=== PATIENT | male | born 1955 | race African-American/Black ===

== ENCOUNTER 2021-06-03 18:29 | Observation (INO) ==
[2021-06-03] MEDS ORDERED: ASPIRIN 81 MG CHEWTAB PO ONE (19:24)
[2021-06-03] MEDS ORDERED: ASPIRIN 81 MG CHEWTAB ONE (19:25)
[2021-06-03] MEDS ORDERED: APRESOLINE INJ 20 MG VIAL IVP ONE (19:31)
[2021-06-03] MEDS ORDERED: APRESOLINE INJ 20 MG VIAL ONE (19:33)
--- NOTE | 2021-06-03 19:45 | RAD ---
CHEST, 1 VIEWHISTORY: CHEST PAINStudy: AP view of the chest.Comparison:NoneFindings:The cardiomediastinal silhouette is normal. No focal consolidations, pleural effusions or pneumothorax. Osseous structures demonstrate no acute abnormality. Bilateral hyperexpansion and interstitial prominence.IMPRESSION:1. No acute cardiopulmonary process.2. Findings of COPD.Electronically signed by: BRODIE HURST (Jun 03, 2021 19:44:26)
[2021-06-03 19:48] LABS: EOSINOPHILS # (AUTO) 0.1 x10^3/uL (0.0-0.2); MEAN PLATELET VOLUME 9.7 fL (7.4-11.0); MONOCYTES # (AUTO) 0.4 x10^3/uL (0.3-0.8)
[2021-06-03 19:53] LABS: EOSINOPHILS % (AUTO) 1.8 % (0.9-2.9); HEMOGLOBIN 13.2 g/dL (13.5-18.0); LYMPHOCYTES # (AUTO) 1.8 X10^3/uL (1.3-2.9); LYMPHOCYTES % (AUTO) 55.2 % (21.0-51.0); MEAN CORPUSCULAR HGB CONC 33.7 g/dL (33.0-35.0); MEAN CORPUSCULAR VOLUME 91.8 fL (80.0-100.0); MONOCYTES % (AUTO) 13.3 % (0.0-13.0); NEUTROPHILS # (AUTO) 0.9 x10^3/uL (2.2-4.8); NEUTROPHILS % (AUTO) 28.7 % (42.0-75.0); PLATELET COUNT 133 X10^3/uL (150.0-450.0); RED BLOOD COUNT 4.24 X10^6/uL (4.7-6.0); WHITE BLOOD COUNT 3.2 X10^3/uL (3.6-10.0)
[2021-06-03 20:07] LABS: ALANINE AMINOTRANSFERASE 60 Units/L (12-78); ALBUMIN 3.9 g/dL (3.4-5.0); ALKALINE PHOSPHATASE 81 Units/L (46-116); ASPARTATE AMINO TRANSFERASE 52 Units/L (15-37); BLOOD UREA NITROGEN 11 mg/dL (7-18); CHLORIDE 100 mmol/L (98-107); CKMB % 2.1 % (<4); CREATINE KINASE 390 Units/L (39-308); CREATININE 0.95 mg/dL (0.70-1.30); SODIUM 137 mmol/L (136-145); TOTAL PROTEIN 8.2 g/dL (6.4-8.2); eGFR NON BLACK RACES > 60 (>60)
[2021-06-03 20:35] LABS: CREATINE KINASE MB 8.2 ng/mL (0-4.0)
--- NOTE | 2021-06-03 22:53 | DR.CP ---
HPI Time Seen Time Seen by Provider: 06/03/21 19:05 PCP Primary Care Physician: Guille Complaint Chief Complaint Doctor Comments: LEFT CHEST PAIN OFF AND ON 2 HOURS PRIOR TO ARRIVAL, SPOUSE STATEDTHAT HE HASNOT BEEN COMPLIANT ON TAKING HIS BLOOD PRESSURE MEDICATIONS. Chief Complaint:: Pt c/o intermittent sharp chest pain x 2 hours. He denies n/v, dizziness or shortness of breath. Pt denies pain at present. Self Treatment fo Chief Complaint: Aspirin 81 mg COVID-19 Coronavirus risk:travel/contact w/high risk person: No Has patient experienced Coronavirus symptoms: No Source History Provided: Patient Mode of Arrival Mode of Arrival: Ambulatory Timing Onset of Chief Complaint: 06/03/21 PMH PMH Past Medical History: Yes Past Medical History: COPD and Hypertension Past Surgical History: No Family History History of Family Medical Conditions: Yes Family Medical History: Heart Failure Social History Does patient currently use any type of tobacco product: No Have you used tobacco products in the last 12 months: No Type of Tobacco Use: None Does any household member use tobacco: No Alcohol Use: None Do you use any recreational Drugs:: No Lives With: Family Lives Where: Home Travel Risk Coronavirus risk:travel/contact w/high risk person: No Has patient experienced Coronavirus symptoms: No Infectious screening In the last 2 months have you had wt loss of >10#?: NO Have you had fever, night sweats or hemotysis?: No Have you traveled outside the country in the last 6 months?: No Isolation: Standard ROS Review of Systems Constitutional: No Symptoms Reported Eyes: No Symptoms Reported ENTM: No Symptoms Reported Respiratoy: No Symptoms Reported Cardiovascular: Chest Pain Gastrointestinal/Abdominal: No Symptoms Reported Genitourinary: No Symptoms Reported Neurological: No Symptoms Reported Musculoskeletal: No Symptoms Reported Integumentary: No Symptoms Reported Hematologic/Lymphatic: No Symptoms Reported Endocrine: No Symptoms Reported Psychiatric: No Symptoms Reported All Other Systems: Reviewed and Negative PE Vitals Vitals: Temperature 97.7 F Pulse Rate 84 Respiratory Rate 18 Blood Pressure 140/97 O2 Sat by Pulse Oximetry 97 General General Appearance: Alert, In No Apparent Distress and In Distress (MODERATE DISTRESS) Head Head Exam: Normal Inspection Eyes Eye exam: Normal Appearance ENT ENT Exam: Normal Exam Chest Chest Inspection: Normal Inspection Respiratory Respiratory Exam: Normal Lung Sounds Bilat Cardiovascular Cardiovascular Exam: Regular Rate and Normal Rhythm Pulse: Normal Edema: Normal Abdominal Exam Abdominal Exam: Normal Inspection, Normal Bowel Sounds and Soft Extremities Extremities Exam: Normal Inspection Back Back Exam: Normal Inspection Neurologic Neurological Exam: Alert and Oriented X3 Psychiatric Psychiatric Exam: Normal Affect and Normal Mood Skin Skin Exam: Warm, Dry, Intact and Normal Color MDM Additional Information Findings: LEFT CHEST PAIN THAT HURTS MORE UPON PALPATION Differential Diagnosis Differential Diagnosis: Angina and Chest Wall Pain COURSE Treatment Treatment: PATIENT WAS GIVEN 2 MORE 81MG ASPIRINS AND HYDRALAZINE 10MG IV TO DE CREASE BLOOD PRESSURE AND HIS LEFT CHEST PAIN RESOLVED AFTER THIS TREATMENT IN ABOUT 40 MINUTES. HIS CARDIAC ENZYMES WERE NORMAL AND EKG WAS NORMAL. ROR Labs Reviewed Laboratory Results Reviewed?: Yes Result Diagrams: 06/04/21 05:00 06/04/21 05:00 Laboratory: WBC 3.2 X10^3/uL (3.6-10.0) L 06/03/21 19:17 RBC 4.24 X10^6/uL (4.7-6.0) L 06/03/21 19:17 Hgb 13.2 g/dL (13.5-18.0) L 06/03/21 19:17 Hct 39.0 % (42.0-54.0) L 06/03/21 19:17 MCV 91.8 fL (80.0-100.0) 06/03/21 19:17 MCH 31.0 pg (27.0-34.0) 06/03/21 19:17 MCHC 33.7 g/dL (33.0-35.0) 06/03/21 19:17 RDW 13.0 % (11.6-16.5) 06/03/21 19:17 Plt Count 133 X10^3/uL (150.0-450.0) L 06/03/21 19:17 MPV 9.7 fL (7.4-11.0) 06/03/21 19:17 Neut % (Auto) 28.7 % (42.0-75.0) L 06/03/21 19:17 Lymph % (Auto) 55.2 % (21.0-51.0) H 06/03/21 19:17 [place] % (Auto) 13.3 % (0.0-13.0) H 06/03/21 19:17 Eos % (Auto) 1.8 % (0.9-2.9) 06/03/21 19:17 Baso % (Auto) 1.0 % (0.2-1.0) 06/03/21 19:17 Neut # (Auto) 0.9 x10^3/uL (2.2-4.8) L 06/03/21 19:17 Lymph # (Auto) 1.8 X10^3/uL (1.3-2.9) 06/03/21 19:17 [place] # (Auto) 0.4 x10^3/uL (0.3-0.8) 06/03/21 19:17 Eos # (Auto) 0.1 x10^3/uL (0.0-0.2) 06/03/21 19:17 Baso # (Auto) 0.0 X10^3/uL (0.0-0.1) 06/03/21 19:17 Absolute Nucleated RBC 0.2 /100WBC 06/03/21 19:17 PT 13.1 SECONDS (11.8-14.3) 06/03/21 19:17 INR Target Range - 06/03/21 19:17 INR 1.04 (0.8-1.3) 06/03/21 19:17 APTT 32.2 SECONDS (22.9-36.5) 06/03/21 19:17 PTT Comment - 06/03/21 19:17 D-Dimer 0.27 ug/ml (0.0-0.57) 06/03/21 19:17 Sodium 137 mmol/L (136-145) 06/03/21 19:17 Corrected Sodium TNP 06/03/21 19:17 Potassium 4.0 mmol/L (3.5-5.1) 06/03/21 19:17 Chloride 100 mmol/L (98-107) 06/03/21 19:17 Carbon Dioxide 32.0 mmol/L (21-32) 06/03/21 19:17 BUN 11 mg/dL (7-18) 06/03/21 19:17 Creatinine 0.95 mg/dL (0.70-1.30) 06/03/21 19:17 Est GFR (MDRD) Af Amer > 60 (>60) 06/03/21 19:17 Est GFR (MDRD) Non-Af > 60 (>60) 06/03/21 19:17 Glucose 81 mg/dL (65-99) 06/03/21 19:17 Calcium 9.0 mg/dL (8.5-10.1) 06/03/21 19:17 Corrected Calcium TNP 06/03/21 19:17 Total Bilirubin 1.10 mg/dL (0.2-1.0) H 06/03/21 19:17 AST 52 Units/L (15-37) H 06/03/21 19:17 ALT 60 Units/L (12-78) 06/03/21 19:17 Alkaline Phosphatase 81 Units/L (46-116) 06/03/21 19:17 Creatine Kinase 342 Units/L (39-308) H 06/03/21 23:00 CK-MB (CK-2) 7.1 ng/mL (0-4.0) H* 06/03/21 23:00 CK/CKMB % Calc 2.1 % (<4) 06/03/21 23:00 Troponin I High Sens 22.6 ng/L (4.0-60.0) 06/03/21 23:00 Total Protein 8.2 g/dL (6.4-8.2) 06/03/21 19:17 Albumin 3.9 g/dL (3.4-5.0) 06/03/21 19:17 Globulin 4.3 g/dL (2.5-4.5) 06/03/21 19:17 Albumin/Globulin Ratio 0.9 Ratio (1.1-2.1) L 06/03/21 19:17 SARS CoV-2 RNA Rapid SIMON Negative (NEGATIVE) 06/04/21 01:40 Other Results Comments: THE PATIENT'S CARDIAC ENZYMES WERE NORMAL AND I GOT A SECOND S ET OF CARDIAC ENZYMES THAT WERE STILL IN NORMAL RANGE BUT SLIGHTLY INCREASED. XRAY XRAY Interpreted by: Radiologist X-ray Results: CHEST XRAY SHOWED SOME COPD BUT PATIENT STATED THAT HE STOPPED SMOKING MANY YEARS AGO. Opioid Opioid Risk Tool Age (Nelson box if 16-45): No History of Preadolescent Sexual Abuse: No Total: 0 Total Score Risk Category: Low Risk Copyright: Adolfo MARROQUIN predicting aberrant behaviors Diagnosis Discharge Problem: Chest pain Instructions Forms: Precautions for COVID19 [facility] Patient Portal Social Distancing ADDITIONAL NOTES Additional Notes Additional Notes: SPOKE TO DR GUERRA AT 0120 AM AND HE AGREED TO ACCEPT THE PATIENT TO OBSERVATION FOR CHEST PAIN.tHEPATIENT WAS TOLD OF THE INTENT AND WAS AGGREABLE.
[2021-06-03 23:59] LABS: CKMB % 2.1 % (<4)
[2021-06-04] LABS: CREATINE KINASE MB 7.1 ng/mL (0-4.0)
[2021-06-04] MEDS ORDERED: APRESOLINE TAB 25 MG PO STA (02:30)
[2021-06-04] MEDS ORDERED: NITROSTAT SL PRN (02:34)
[2021-06-04] MEDS ORDERED: PROVENTIL NEB TX 0.083% 2.5MG/ 3ML NEB PRN (03:13)
[2021-06-04 03:42] VITALS: BMI 22.0
[2021-06-04 05:25] LABS: BASOPHILS % (AUTO) 0.8 % (0.2-1.0); EOSINOPHILS % (AUTO) 0.4 % (0.9-2.9); HEMATOCRIT 41.8 % (42.0-54.0); HEMOGLOBIN 14.2 g/dL (13.5-18.0); LYMPHOCYTES # (AUTO) 0.7 X10^3/uL (1.3-2.9); LYMPHOCYTES % (AUTO) 21.5 % (21.0-51.0); MEAN CORPUSCULAR HEMOGLOBIN 30.8 pg (27.0-34.0); MEAN CORPUSCULAR HGB CONC 33.9 g/dL (33.0-35.0); MEAN CORPUSCULAR VOLUME 90.9 fL (80.0-100.0); MEAN PLATELET VOLUME 9.8 fL (7.4-11.0); MONOCYTES # (AUTO) 0.2 x10^3/uL (0.3-0.8); MONOCYTES % (AUTO) 6.9 % (0.0-13.0); NEUTROPHILS # (AUTO) 2.3 x10^3/uL (2.2-4.8); NEUTROPHILS % (AUTO) 70.4 % (42.0-75.0); PLATELET COUNT 138 X10^3/uL (150.0-450.0); WHITE BLOOD COUNT 3.3 X10^3/uL (3.6-10.0)
[2021-06-04 05:51] LABS: ALANINE AMINOTRANSFERASE 53 Units/L (12-78); ALBUMIN 3.9 g/dL (3.4-5.0); ALKALINE PHOSPHATASE 70 Units/L (46-116); ASPARTATE AMINO TRANSFERASE 45 Units/L (15-37); BLOOD UREA NITROGEN 10 mg/dL (7-18); CALCIUM 9.3 mg/dL (8.5-10.1); CARBON DIOXIDE 26.9 mmol/L (21-32); CHLORIDE 101 mmol/L (98-107); CREATININE 0.88 mg/dL (0.70-1.30); SODIUM 135 mmol/L (136-145); TOTAL PROTEIN 8.2 g/dL (6.4-8.2); eGFR NON BLACK RACES > 60 (>60)
[2021-06-04 05:53] LABS: CHOL/HDL RATIO 2.1 (0.0-5.0)
[2021-06-04 06:06] LABS: CKMB % 1.9 % (<4)
[2021-06-04 06:09] LABS: CREATINE KINASE MB 5.8 ng/mL (0-4.0)
[2021-06-04] MEDS ORDERED: COZAAR PO SCH (09:00)
[2021-06-04] MEDS ORDERED: APRESOLINE TAB 25 MG PO SCH (09:00)
[2021-06-04] MEDS ORDERED: NORVASC TAB 10 MG PO SCH (09:00)
[2021-06-04] MEDS ORDERED: ASPIRIN PO SCH ×2 (09:00)
--- NOTE | 2021-06-04 10:19 | DR.H&P ---
H&P History & Physical for Day of: H&P Date: 06/04/21 Chief Complaint Chief Complaint: Chest pain Allergies Allergies Allergy/AdvReac Type Severity Reaction Status Date / Time No Known Drug Allergies Allergy Verified 06/03/21 18:35 History of Present Illness History of Present Illness: Pt is a 66 year old male past medical history of hypertension and copd presenting with chest pain initially for the past 2 hours. In the ED it was noted that patient had significant hypertension and did not take his medications that day. Labs/imaging: Wbc 3.3, Hgb 14.2, Plt 138, Na 135, K 4.0, Creatinine 0.88, Glucose 94, D-dimer 0.27, EKG NSR, CXR: no acute cardiopulmonary findings, Troponin negative x3. Pt was admitted for observation, cardiac enzymes trended that was negative, and home blood pressure medications restarted. Pt responded well to treatment and chest pain resolved. Pt is instructed to take his blood pressure medication at home. He was discharged in stable condition. Instructed to follow up with pcp in 3-5 days. Past Medical History Past Medical History: COPD and Hypertension Family History Family Medical History: Heart Failure and Hypertension Social History Does patient currently use any type of tobacco product: No Have you used tobacco products in the last 12 months: No Type of Tobacco Use: None Does any household member use tobacco: No Alcohol Use: None Drug Use: None Medications Home Medications: No Known Drug Allergies Allergy (Verified 06/03/21 18:35) CONTINUE taking the following medications albuterol sulfate 1 inh INHALATION Q4H PRN 06/04/21 [History] amlodipine 10 mg PO DAILY 06/04/21 [History] hydrocodone-acetaminophen 1 tab PO Q6H PRN 06/04/21 [History] losartan 100 mg PO DAILY 06/04/21 [History] montelukast 10 mg PO DAILY 06/04/21 [History] tamsulosin 0.4 mg PO DAILY 06/04/21 [History] umeclidinium-vilanterol [Anoro Ellipta] 1 inh INHALATION DAILY 06/04/21 [History] Labs Result Diagrams: 06/04/21 05:00 06/04/21 05:00 Labs: Laboratory WBC 3.3 X10^3/uL (3.6-10.0) L 06/04/21 05:00 RBC 4.60 X10^6/uL (4.7-6.0) L 06/04/21 05:00 Hgb 14.2 g/dL (13.5-18.0) 06/04/21 05:00 Hct 41.8 % (42.0-54.0) L 06/04/21 05:00 MCV 90.9 fL (80.0-100.0) 06/04/21 05:00 MCH 30.8 pg (27.0-34.0) 06/04/21 05:00 MCHC 33.9 g/dL (33.0-35.0) 06/04/21 05:00 RDW 13.0 % (11.6-16.5) 06/04/21 05:00 Plt Count 138 X10^3/uL (150.0-450.0) L 06/04/21 05:00 MPV 9.8 fL (7.4-11.0) 06/04/21 05:00 Neut % (Auto) 70.4 % (42.0-75.0) 06/04/21 05:00 Lymph % (Auto) 21.5 % (21.0-51.0) 06/04/21 05:00 [place] % (Auto) 6.9 % (0.0-13.0) 06/04/21 05:00 Eos % (Auto) 0.4 % (0.9-2.9) L 06/04/21 05:00 Baso % (Auto) 0.8 % (0.2-1.0) 06/04/21 05:00 Neut # (Auto) 2.3 x10^3/uL (2.2-4.8) 06/04/21 05:00 Lymph # (Auto) 0.7 X10^3/uL (1.3-2.9) L 06/04/21 05:00 [place] # (Auto) 0.2 x10^3/uL (0.3-0.8) L 06/04/21 05:00 Eos # (Auto) 0.0 x10^3/uL (0.0-0.2) 06/04/21 05:00 Baso # (Auto) 0.0 X10^3/uL (0.0-0.1) 06/04/21 05:00 Absolute Nucleated RBC 0.1 /100WBC 06/04/21 05:00 PT 13.1 SECONDS (11.8-14.3) 06/03/21 19:17 INR Target Range - 06/03/21 19:17 INR 1.04 (0.8-1.3) 06/03/21 19:17 APTT 32.2 SECONDS (22.9-36.5) 06/03/21 19:17 PTT Comment - 06/03/21 19:17 D-Dimer 0.27 ug/ml (0.0-0.57) 06/03/21 19:17 Sodium 135 mmol/L (136-145) L 06/04/21 05:00 Corrected Sodium TNP 06/04/21 05:00 Potassium 4.0 mmol/L (3.5-5.1) 06/04/21 05:00 Chloride 101 mmol/L (98-107) 06/04/21 05:00 Carbon Dioxide 26.9 mmol/L (21-32) 06/04/21 05:00 BUN 10 mg/dL (7-18) 06/04/21 05:00 Creatinine 0.88 mg/dL (0.70-1.30) 06/04/21 05:00 Est GFR (MDRD) Af Amer > 60 (>60) 06/04/21 05:00 Est GFR (MDRD) Non-Af > 60 (>60) 06/04/21 05:00 Glucose 94 mg/dL (65-99) 06/04/21 05:00 Calcium 9.3 mg/dL (8.5-10.1) 06/04/21 05:00 Corrected Calcium TNP 06/04/21 05:00 Total Bilirubin 1.60 mg/dL (0.2-1.0) H 06/04/21 05:00 AST 45 Units/L (15-37) H 06/04/21 05:00 ALT 53 Units/L (12-78) 06/04/21 05:00 Alkaline Phosphatase 70 Units/L (46-116) 06/04/21 05:00 Creatine Kinase 314 Units/L (39-308) H 06/04/21 05:00 CK-MB (CK-2) 5.8 ng/mL (0-4.0) H* 06/04/21 05:00 CK/CKMB % Calc 1.9 % (<4) 06/04/21 05:00 Troponin I High Sens 13.1 ng/L (4.0-60.0) 06/04/21 05:00 Total Protein 8.2 g/dL (6.4-8.2) 06/04/21 05:00 Albumin 3.9 g/dL (3.4-5.0) 06/04/21 05:00 Globulin 4.3 g/dL (2.5-4.5) 06/04/21 05:00 Albumin/Globulin Ratio 0.9 Ratio (1.1-2.1) L 06/04/21 05:00 Triglycerides 45 mg/dL (0-150) 06/04/21 05:00 Cholesterol 165 mg/dL (0-200) 06/04/21 05:00 LDL Cholesterol, Calc 78 mg/dL (0-100) 06/04/21 05:00 HDL Cholesterol 78 mg/dL (40-60) H 06/04/21 05:00 Cholesterol/HDL Ratio 2.1 (0.0-5.0) 06/04/21 05:00 SARS CoV-2 RNA Rapid SIMON Negative (NEGATIVE) 06/04/21 01:40 Review of Systems Constitutional: No Symptoms Reported Eyes: No Symptoms Reported ENT: No Symptoms Reported Respiratory: No Symptoms Reported Cardiovascular: Chest Pain Gastrointestinal: No Symptoms Reported Genitourinary: No Symptoms Reported Musculoskeletal: No Symptoms Reported Skin: No Symptoms Reported Neurological: No Symptoms Reported Physical Exam Vital Signs: Temperature 98.4 F Pulse Rate [Bilateral Radial] 90 Pulse Rate 86 Respiratory Rate 23 Blood Pressure [Right Arm] 151/93 Blood Pressure 160/100 O2 Sat by Pulse Oximetry 94 Oriented: Normal Eyes: Normal Ear: Normal Nose: Normal Throat: Normal Respiratory: Clear Throughout Cardiovascular: Normal : Normal Auscultation: Bowel Sounds: Normal Palpation: Normal Tenderness: Normal Skin: Normal Musculoskeletal: Normal Psychiatric: Normal Mood Description: Calm and Appropriate Affect: Normal Speech Pattern: Clear and Appropriate Assessment/Plan (1) Chest pain: Status: Acute Plan: Workup negative. (2) Hypertension: Status: Acute Plan: Continue home blood pressure medications. Review H&P Reviewed: Yes Patient was examined?: Yes
[2021-06-04 12:18] LABS: CKMB % 1.8 % (<4)
[2021-06-04 12:21] LABS: CREATINE KINASE MB 4.5 ng/mL (0-4.0)
[2021-06-04 13:29] VITALS: BP 143/93
== END 2021-06-04 13:05 | disposition home or self-care (01) ==
LOC: ER 18:29 → MED/SURG 06-04 02:11 → INTOOBSV 06-04 02:11 → MED/SURG 06-04 03:00
PROVIDERS: ADMIT Family Medicine; ATTEND Family Medicine
DX: I10 Essential (primary) hypertension; R07.89 Other chest pain; Z20.822 Contact with and (suspected) exposure to COVID-19; R94.31 Abnormal electrocardiogram [ECG] [EKG]; J44.9 Chronic obstructive pulmonary disease, unspecified